=== PATIENT | female | born 2005 ===

== ENCOUNTER 2024-05-05 16:27 | Emergency (ER) | payer SELFPAY ==
[~2024-05-05] VITALS: Ht 170.2 cm; Wt 117.9 kg
[2024-05-05] MEDS ORDERED: OMEP20ER PO (16:43)
[2024-05-05 16:59] LABS: BASOPHILS ABSOLUTE AUTO 0.02 K/mm3 (0.00-0.23); BASOPHILS PERCENT AUTO 0 % (0-2); EOSINOPHILS ABSOLUTE AUTO 0.03 K/mm3 (0.00-0.68); EOSINOPHILS PERCENT AUTO 1 % (0-6); Hematocrit 38.4 % (33.0-51.0); Hemoglobin 13.2 g/dL (11.5-16.0); IMMATURE GRAN ABSOLUTE AUTO 0.02 K/mm3 (0.00-0.10); IMMATURE GRAN PERCENT AUTO 0 % (0-1); LYMPHOCYTES PERCENT AUTO 24 % (21-46); MONOCYTES ABSOLUTE AUTO 0.45 K/mm3 (0.16-1.47); MONOCYTES PERCENT AUTO 8 % (4-13); Mean Corpuscular HGB 29.8 pg (26.0-34.0); Mean Corpuscular HGB Conc 34.4 g/dL (31.5-36.5); Mean Corpuscular Volume 87 fL (80-100); Mean Platelet Volume 10.4 fL (9.1-12.4); NEUTROPHILS ABSOLUTE AUTO 3.94 K/mm3 (1.96-9.15); NEUTROPHILS PERCENT AUTO 67 % (41-73); Platelet Count 307 K/mm3 (150-400); RDW Coefficient Variation 12.6 % (11.7-14.2); RDW Standard Deviation 39.9 fL (35.1-46.3); Red Blood Cell Count 4.43 M/mm3 (3.80-5.20); White Blood Cell Count 5.86 K/mm3 (4.00-11.30)
[2024-05-05 17:03] LABS: Calcium, Ionized (POC) 1.06 mmol/L (1.10-1.46); Chloride (POC) 106 mmol/L (98-108); Creatinine (POC) 0.8 mg/dL (0.6-1.0); Glucose (ISTAT POC) 144 mg/dL (70-99); Hemoglobin (POC) 12.9 g/dL (12.0-16.0); Potassium (POC) 6.8 mmol/L (3.5-5.5); Sodium (POC) 136 mmol/L (135-148); Total CO2 (POC) 23 mmol/L (21-32)
[2024-05-05] MEDS ORDERED: NS 1,000 ML IV SCH (17:15)
[2024-05-05] MEDS ORDERED: HyDROXyzine HCl 25 MG Tab PO ONE (17:15)
[2024-05-05 18:17] LABS: Magnesium, Blood 1.9 mg/dL (1.6-2.4)
[2024-05-05 18:20] LABS: Albumin, Blood 3.5 g/dL (3.4-5.0); Bilirubin, Total 0.2 mg/dL (0.1-1.0); Bun/Creatinine Ratio 13.9 (12.0-20.0); Calcium, Blood 8.4 mg/dL (8.5-10.1); Creatinine, Blood 0.79 mg/dL (0.40-1.00); Globulin, Blood 3.4 g/dL (2.2-4.0); Potassium, Blood 3.8 mmol/L (3.5-5.5); Thyroid Stimulating Hormone 1.42 uIU/mL (0.360-4.800); Total Protein, Blood 6.9 g/dL (6.4-8.2)
[2024-05-05] MEDS ORDERED: Vistaril25 MG PO (18:32)
== END 2024-05-05 18:59 | disposition home or self-care (01) ==
LOC: ER 16:27
PROVIDERS: Emergency Medicine
DX: R00.0 Tachycardia, unspecified (principal); F12.929 Cannabis use, unspecified with intoxication, unspecified; F41.9 Anxiety disorder, unspecified
CPT/HCPCS: 80047; 80053; 83735; 84443; 84702; 85014; 85025; 93005; 93010; 99284-25; A9270; J7030

== ENCOUNTER 2024-07-15 21:25 | Emergency (ER) | payer SELFPAY ==
[~2024-07-15] VITALS: Ht 167.6 cm; Wt 117.9 kg
[~2024-07-15 21:25] MED LIST: OMEP20ER PO; Vistaril25 MG PO
== END 2024-07-15 23:25 | disposition home or self-care (01) ==
LOC: ER 21:25
DX: S81.012A Laceration without foreign body, left knee, initial encounter (principal); W45.8XXA Other foreign body or object entering through skin, initial encounter
CPT/HCPCS: 12002; 99282-25

== ENCOUNTER 2025-01-26 16:12 | Emergency (ER) | payer OTHER ==
[~2025-01-26] VITALS: Ht 167.6 cm; Wt 117.9 kg
[2025-01-26] MEDS ORDERED: PANT20 PO (18:26)
[2025-01-26] MEDS ORDERED: PRAZ1 PO (18:26)
== END 2025-01-26 20:40 | disposition home or self-care (01) ==
LOC: ER 16:12
DX: S61.213A Laceration without foreign body of left middle finger without damage to nail, initial encounter (principal); Z79.899 Other long term (current) drug therapy; K21.9 Gastro-esophageal reflux disease without esophagitis; X58.XXXA Exposure to other specified factors, initial encounter
CPT/HCPCS: 12001; 90471; 90715; 99282-25